=== PATIENT | male | born 1950 | race Caucasian/White ===

== ENCOUNTER 2019-12-03 21:03 | Inpatient (IN) | payer MEDICARE ==
[~2019-12-03] VITALS: Ht 167.6 cm; Wt 60.3 kg
--- NOTE | 2019-12-03 10:40 | NUR ---
GPS: ADMIT PT TO U Addendum: 12/04/19 at 0044 by EAGLE HAN RN PT ADMIT [id number] NOT [id number]
--- NOTE | 2019-12-03 21:08 | NUR ---
Dr. Delgado at bedside for MSE.
[2019-12-03] MEDS ORDERED: [UNRECOGNIZED DRUG - REMARK] (21:10)
[2019-12-03] MEDS ORDERED: [UNRECOGNIZED DRUG - REMARK] (21:10)
[2019-12-03 21:40] LABS: BASOPHILS # (AUTO) 0.1 K/uL (0.0-8.0); BASOPHILS % (AUTO) 0.7 % (0.0-2.0); EOSINOPHILS # (AUTO) 0.3 K/uL (0.0-0.7); EOSINOPHILS % (AUTO) 3.3 % (0.0-7.0); HEMATOCRIT 43.7 % (36.7-47.1); HEMOGLOBIN 14.5 g/dL (12.5-16.3); LYMPHOCYTES # (AUTO) 2.9 K/uL (20.0-40.0); LYMPHOCYTES % (AUTO) 37.2 % (20.5-51.5); MEAN CORPUSCULAR HEMOGLOBIN 29.6 uug (23.8-33.4); MEAN CORPUSCULAR HGB CONC 33 g/dL (32.5-36.3); MONOCYTES # (AUTO) 0.7 K/uL (2.0-10.0); MONOCYTES % (AUTO) 8.4 % (0.0-11.0); NEUTROPHILS # (AUTO) 3.9 K/uL (1.8-8.9); NEUTROPHILS % (AUTO) 50.4 % (38.5-71.5); PLATELET COUNT (AUTO) 308 K/uL (152-348); RED BLOOD CELL COUNT(AUTO) 4.91 MIL/uL (4.06-5.63); WHITE BLOOD COUNT (AUTO) 7.8 K/uL (3.6-10.2)
[2019-12-03 21:43] LABS: CARBON DIOXIDE 26 mmol/L (21-32); CHLORIDE 104 mmol/L (98-107); CREATININE 1.2 mg/dL (0.6-1.3); GLUCOSE 151 mg/dL (74-106); POTASSIUM 5.1 mmol/L (3.5-5.1); UREA NITROGEN, BLOOD 19 mg/dL (7-18)
[2019-12-03 21:49] LABS: ACETAMINOPHEN < 2.0 ug/mL (10-30); ALANINE AMINOTRANSFERASE 12 U/L (16-63); ALKALINE PHOSPHATASE 39 U/L (50-136); ASPARTATE AMINOTRANSFERASE 18 U/L (15-37); BILIRUBIN,DIRECT 0.4 mg/dL (0.0-0.2); BILIRUBIN,TOTAL 1.1 mg/dL (0.2-1.0); TOTAL PROTEIN, SERUM 7.5 g/dL (6.4-8.2)
[2019-12-03 21:56] LABS: THYROID STIMULATING HORMONE 0.766 mIU/mL (0.358-3.740)
[2019-12-03 22:11] LABS: ETHANOL < 3 MG/DL (0-0)
--- NOTE | 2019-12-03 22:15 | NUR ---
Patient medically cleared by Dr. Delgado
[2019-12-03] MEDS ORDERED: LORAZEPAM 0.5 MG TABLET PO ONE (22:30)
--- NOTE | 2019-12-03 22:30 | NUR ---
Report given to Will RN MHU.
[2019-12-03] MEDS ORDERED: LORAZEPAM 1 MG TABLET ONE (22:35)
[2019-12-03] MEDS ORDERED: BLOOD SUGAR DIAGNOSTIC 1 EACH STRIP VI ONE (23:15)
[2019-12-03] MEDS ORDERED: LORAZEPAM 0.5 MG TABLET PO PRN (23:15)
[2019-12-04] MEDS ORDERED: MAGNESIUM HYDROXIDE 30 ML LIQUID UDC PO PRN
[2019-12-04] MEDS ORDERED: MAG HYDROX/AL HYDROX/SIMETH 30 ML LIQUID UDC PO PRN
[2019-12-04] MEDS ORDERED: ACETAMINOPHEN 325 MG TABLET PO PRN
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
--- NOTE | 2019-12-04 00:38 | NUR ---
GPS: ADMIT PT TO THE CARE OF DR. ESPANA. CALLED AND MADE AWARE OF PT ARRIVAL AT 1125.
--- NOTE | 2019-12-04 05:00 | NUR ---
Patient slept throughout night with no complaints of pain/discomfort verbalized or noted/observed by this nurse. Patient was compliant with care after this nurse received handoff from LIZZETTE Penaloza. All safety, fall, and GPS/MHU precautions remain in place.
[2019-12-04 07:30] VITALS: BP 113/56
[2019-12-04 08:28] LABS: BILIRUBIN,TOTAL 1.1 mg/dL (0.2-1.0); POTASSIUM 5.1 mmol/L (3.5-5.1); TOTAL PROTEIN, SERUM 7.9 g/dL (6.4-8.2)
[2019-12-04] MEDS ORDERED: LISI2.5T2 PO (08:36)
[2019-12-04] MEDS ORDERED: MEMA10TA PO (08:38)
[2019-12-04 08:39] LABS: THYROID STIMULATING HORMONE 0.623 mIU/mL (0.358-3.740)
[2019-12-04] MEDS ORDERED: LEVO75TA7 PO (08:39)
[2019-12-04] MEDS: LISINOPRIL 5 MG TABLET PO SCH (09:00)
[2019-12-04] MEDS ORDERED: MEMANTINE HCL 10 MG TABLET PO SCH (09:00)
[2019-12-04] MEDS: MEMANTINE HCL 5 MG TABLET PO SCH ×2 (09:08→09:15)
[2019-12-04] MEDS: LEVOTHYROXINE SODIUM 75 MCG TABLET PO SCH (09:15)
--- NOTE | 2019-12-04 15:00 | NUR ---
Received patient this am, awake and alert in bed. Patient has been asking repeatly " Why am I here? When can I get out of here?" Hog Buyer reoriented patient to situation and explained the hold. Patient has some delusions about the situation that brought him to the hospital. However , patient is pleasant and medication compliant so far. This patient is able to have meaningful conversations, mostly about the past and his family. Continuing to monitor patient for behavioral escalation and safety. Encouragement and education given to the patient about all new medications started.
[2019-12-04 16:00] VITALS: BP 114/59
[2019-12-04] MEDS: DIVALPROEX SPRINKLE 125 MG CAP.SPRINK PO SCH (16:56)
[2019-12-04 20:00] VITALS: BP 99/51
[2019-12-04] MEDS: TEMAZEPAM 7.5 MG CAPSULE PO PRN (20:14)
[2019-12-05 07:30] VITALS: BP 111/63
[2019-12-05] MEDS: DIVALPROEX SPRINKLE 125 MG CAP.SPRINK PO SCH ×2 (08:17→16:50)
[2019-12-05] MEDS: LEVOTHYROXINE SODIUM 75 MCG TABLET PO SCH (08:17)
[2019-12-05] MEDS: MEMANTINE HCL 5 MG TABLET PO SCH (08:18)
[2019-12-05] MEDS: LISINOPRIL 5 MG TABLET PO SCH (08:19)
[2019-12-05 16:13] VITALS: BP 94/55
[2019-12-05] MEDS: BENZTROPINE MESYLATE 0.5 MG TABLET PO SCH (20:05)
[2019-12-05 20:24] VITALS: BP 97/50
[2019-12-05] MEDS ORDERED: risperiDONE 0.5 MG TABLET PO SCH (21:00)
[2019-12-06 07:30] VITALS: BP 102/54
--- NOTE | 2019-12-06 08:00 | NUR ---
patient AOx1, confused , calm coperative, compliant with medication
[2019-12-06] MEDS: LISINOPRIL 5 MG TABLET PO SCH (08:11)
[2019-12-06] MEDS: DIVALPROEX SPRINKLE 125 MG CAP.SPRINK PO SCH ×2 (08:11→16:01)
[2019-12-06] MEDS: MEMANTINE HCL 5 MG TABLET PO SCH (08:11)
[2019-12-06] MEDS: LEVOTHYROXINE SODIUM 75 MCG TABLET PO SCH (08:11)
--- NOTE | 2019-12-06 10:30 | NUR ---
Family Contact: SW called the pts son, Anthony ([phone]), and discussed the pts situation at length. Pts son informed the SW about the condition of the pt and the quick deterioration that occurred. Pts son also expressed his concern with the pts landlord and the SW stated that she will speak to him and work out a solution. SW inquired about the pts discharge plan and the pts son stated that he would like to see how the pt progresses in the next couple of days and will proceed with a plan for the pt to either return to his apartment or seek alternative placement.
--- NOTE | 2019-12-06 12:37 | NUR ---
patient seen with wet pants, patient denies that he pee on himself, no recollection on how his pants got wet, patient agreed on changing, patient calm and cooperative
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
--- NOTE | 2019-12-06 14:20 | NUR ---
Group Note: SW facilitated group therapy on 12/06/2019 at 1330. The topic of the group was grief and loss. Pt stated that he lost his parents a long time ago and that he felt the loss then but now he has replaced it with his own family and his siblings. Pt states that he had a but she left him which was a loss for him but he stated that it was a good loss. Pt stated that not all loss is negative and he stated that grief is also temporary. SW stated that the pt had good insight.
--- NOTE | 2019-12-06 15:11 | NUR ---
Family Contact: SW called the pts son, Anthony ([phone]), and left a voicemail stating that the SW was calling to discuss how interaction with the pt went during the assessment.
[2019-12-06 16:00] VITALS: BP 121/59
--- NOTE | 2019-12-06 16:08 | NUR ---
Initial Discharge Plan: Pt currently resides in his apartment alone located at [address] [place] [address], [address] [place] [address]; ([phone]). Per pt, he would like to return to his home. SW will work with the pt and the MD regarding appropriate discharge planning. SW will form a safe and proper discharge.
--- NOTE | 2019-12-06 18:15 | NUR ---
patient calm cooperative, no distress at this time, redirectable
--- NOTE | 2019-12-06 19:45 | NUR ---
received patient in bed alert oriented, ambulate to the toilet, no complain of pain. Patient calm at this time. cont to monitor.
[2019-12-06 20:00] VITALS: BP 125/60
[2019-12-06] MEDS ORDERED: risperiDONE 0.5 MG TABLET PO SCH (21:00)
[2019-12-06] MEDS: BENZTROPINE MESYLATE 0.5 MG TABLET PO SCH (21:31)
[2019-12-06] MEDS: TEMAZEPAM 7.5 MG CAPSULE PO PRN (21:40)
--- NOTE | 2019-12-06 22:40 | NUR ---
patient complain of insomnia, requested sleeping pill. patient was medicated as ordered, but not effective, request medication to help his anxiety, will medicate as ordered.
--- NOTE | 2019-12-06 23:34 | NUR ---
patient is up in the hallways, complaining of anxiety, medicated patient as ordered.
--- NOTE | 2019-12-07 06:37 | NUR ---
patient alert oriented, cooperative with care, slept most of the night, cont to monitor.
[2019-12-07 07:30] VITALS: BP 100/49
[2019-12-07] MEDS: LEVOTHYROXINE SODIUM 75 MCG TABLET PO SCH (08:06)
[2019-12-07] MEDS: DIVALPROEX SPRINKLE 125 MG CAP.SPRINK PO SCH ×2 (08:07→16:46)
[2019-12-07] MEDS: MEMANTINE HCL 5 MG TABLET PO SCH (08:07)
[2019-12-07] MEDS: LISINOPRIL 5 MG TABLET PO SCH (08:08)
--- NOTE | 2019-12-07 11:17 | NUR ---
Family Contact: BEV called the pts son, Anthony ([phone]), and discussed Assisted Living placement with him. BEV informed him that the MD recommendation is for the pt to be placed in a higher level of care since he currently lives by himself. Pts son stated that he began to look into some around a better area for the pts siblings and also stated that the pt does not make too much money. Pts son stated that he wants to speak to the rest of the family members before proceeding with this discharge plan. He also stated that they are looking into a different apartment for the pt and are interested in hiring a caregiver. BEV stated that she will proceed once he calls her back.
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
[2019-12-07 15:12] VITALS: BP 114/63
--- NOTE | 2019-12-07 16:14 | NUR ---
Family Contact: Pts son, Anthony ([phone]), called the SW back and stated that he spoke to the family and they agreed that the pt needs to be in an Assisted Living. He stated that the pts sister has a recommendation that he is going to call before having the SW follow up. SW assisted the pts son with what information to look for when speaking to this Assisted Living. SW then went over the pts medications with him to the best of her ability and transferred the call to the nursing station when the pts son was concerned about the lack of diabetes medication.
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
[2019-12-07] MEDS: BENZTROPINE MESYLATE 0.5 MG TABLET PO SCH (20:43)
[2019-12-07] MEDS ORDERED: risperiDONE 0.5 MG TABLET PO SCH (21:00)
[2019-12-07 21:18] VITALS: BP 124/55
--- NOTE | 2019-12-07 22:33 | NUR ---
Received pt resting in bed. AAO x3. No acute distress noted. Denies pain/ discomfort. Denies SI/ HI. Pt appears to be pleasant and conversational. Due meds given as ordered, pt tolerated well. Safety measures maintained. Will continue to monitor.
[2019-12-08 07:30] VITALS: BP 143/66
[2019-12-08] MEDS: DIVALPROEX SPRINKLE 125 MG CAP.SPRINK PO SCH ×2 (08:24→17:21)
[2019-12-08] MEDS: LEVOTHYROXINE SODIUM 75 MCG TABLET PO SCH (08:24)
[2019-12-08] MEDS: LISINOPRIL 5 MG TABLET PO SCH (08:25)
[2019-12-08] MEDS: MEMANTINE HCL 5 MG TABLET PO SCH (08:25)
--- NOTE | 2019-12-08 09:43 | NUR ---
Facility Contact: BEV called Angella ([phone]) from the [facility] and left a voicemail stating that the SW would like to discuss the pts placement.
--- NOTE | 2019-12-08 09:58 | NUR ---
Family Contact: SW called the pts son, Anthony ([phone]), and left a voicemail stating that the SW would like to discuss SNF placement with the pts son.
[2019-12-08] MEDS ORDERED: DEXTROSE 50% 50 ML DISP.SYRIN IV PRN (12:30)
--- NOTE | 2019-12-08 12:32 | NUR ---
left message to the office of dr mckeon at [phone] to get the information for patient current meds
--- NOTE | 2019-12-08 13:18 | NUR ---
Facility Contact: BEV called Angella ([phone]) from the [facility] and provided her with information regarding the pt through the phone. She requested that the BEV fax some documents to her with information on the pt. BEV faxed some notes to the fax number: [phone].
--- NOTE | 2019-12-08 13:18 | NUR ---
SNF Referral: SW faxed a referral to the following two facilities: [facility] with attn to Cristian to the fax number: [phone] [facility] with attn to Mary to the fax number: [phone].
--- NOTE | 2019-12-08 14:40 | NUR ---
APS Contact: BEV received a call from Isrrael ([phone]), Intake SW for APS, who stated that the case is being assigned to the [place] [facility] and the intake ID number is [id number].
--- NOTE | 2019-12-08 15:55 | NUR ---
Family Contact: BEV called the pts son, Anthony ([phone]), to return his voicemail message and stated that she has not received any more information from Angella at the [facility] after a referral was sent.
[2019-12-08 16:00] VITALS: BP 107/49
[2019-12-08] MEDS: BLOOD SUGAR DIAGNOSTIC 1 EACH STRIP VI SCH ×2 (16:50→21:02)
[2019-12-08] MEDS: INSULIN REGULAR, HUMAN 300 UNIT/3 ML VIAL SQ PRN ×2 (16:54→21:05)
[2019-12-08] MEDS ORDERED: FERR325T28 PO (17:46)
[2019-12-08] MEDS ORDERED: DONE10TA44 PO (17:46)
[2019-12-08] MEDS ORDERED: CYAN100096 PO (17:46)
[2019-12-08] MEDS ORDERED: ATOR80TA PO (17:46)
[2019-12-08] MEDS ORDERED: GABA600T12 PO (17:46)
[2019-12-08] MEDS ORDERED: CLOP75TA15 PO (17:46)
[2019-12-08] MEDS ORDERED: GLIP10TA11 PO (17:47)
[2019-12-08] MEDS ORDERED: METF-494 PO (17:49)
[2019-12-08] MEDS ORDERED: LISI2.5T2 PO (17:49)
[2019-12-08] MEDS ORDERED: SITA1TAB6 PO (17:51)
[2019-12-08] MEDS ORDERED: METO50TA16 PO (17:51)
--- NOTE | 2019-12-08 17:52 | NUR ---
patient son called multiple times to the nursing station to get his medication list form the primary physician, name zak. medication list recieved and added to patient home medications. endorsed to next shift to follow up with hospitalist tomorrow.
[2019-12-08] MEDS ORDERED: CANA100T PO (18:08)
[2019-12-08] MEDS ORDERED: CLOT15CR27 TP (18:08)
[2019-12-08] MEDS ORDERED: PARO10TA86 PO (18:08)
[2019-12-08] MEDS ORDERED: ECON15CR4 TP (18:08)
[2019-12-08] MEDS ORDERED: AZIT250T PO (18:08)
--- NOTE | 2019-12-08 18:38 | NUR ---
patient is ambulatory, no distress noted, no agitation noted Addendum: 12/08/19 at 1838 by JACINTO NEWMAN RN, RN denied suicidal thoughts
--- NOTE | 2019-12-08 19:28 | NUR ---
report given to night nurse
[2019-12-08] MEDS: BENZTROPINE MESYLATE 0.5 MG TABLET PO SCH (20:14)
[2019-12-08] MEDS: risperiDONE 0.5 MG TABLET PO SCH (20:14)
[2019-12-08 20:19] VITALS: BP 100/57
--- NOTE | 2019-12-09 06:18 | NUR ---
Pt slept 6.30 hrs. Had shower in am. BS 171.
[2019-12-09] MEDS: BLOOD SUGAR DIAGNOSTIC 1 EACH STRIP VI SCH ×4 (06:37→21:00)
[2019-12-09 07:30] VITALS: BP 108/57
[2019-12-09] MEDS: INSULIN REGULAR, HUMAN 300 UNIT/3 ML VIAL SQ PRN ×4 (08:19→21:05)
[2019-12-09] MEDS: MEMANTINE HCL 5 MG TABLET PO SCH (08:20)
[2019-12-09] MEDS: LEVOTHYROXINE SODIUM 75 MCG TABLET PO SCH (08:20)
[2019-12-09] MEDS: DIVALPROEX SPRINKLE 125 MG CAP.SPRINK PO SCH ×2 (08:20→17:15)
[2019-12-09] MEDS: LISINOPRIL 5 MG TABLET PO SCH (09:00)
--- NOTE | 2019-12-09 10:16 | NUR ---
SNF Contact: Anjana ([phone]) from [facility] contacted the SW and stated that the pt was not accepted due to behavior.
--- NOTE | 2019-12-09 12:25 | NUR ---
SNF Referral: BEV faxed a referral to [facility] with attention to Marisela to the fax number: [phone].
[2019-12-09 15:23] VITALS: BP 115/58
[2019-12-09] MEDS: risperiDONE 0.5 MG TABLET PO SCH (20:46)
[2019-12-09] MEDS: BENZTROPINE MESYLATE 0.5 MG TABLET PO SCH (20:46)
[2019-12-09 20:49] VITALS: BP 107/72
[2019-12-09] MEDS: TEMAZEPAM 7.5 MG CAPSULE PO PRN (21:03)
[2019-12-10] MEDS: BLOOD SUGAR DIAGNOSTIC 1 EACH STRIP VI SCH ×4 (06:41→20:14)
[2019-12-10 07:13] LABS: BASOPHILS % (AUTO) 0.6 % (0.0-2.0); EOSINOPHILS # (AUTO) 0.3 K/uL (0.0-0.7); EOSINOPHILS % (AUTO) 4.8 % (0.0-7.0); HEMATOCRIT 38.1 % (36.7-47.1); HEMOGLOBIN 12.9 g/dL (12.5-16.3); LYMPHOCYTES # (AUTO) 1.7 K/uL (20.0-40.0); LYMPHOCYTES % (AUTO) 31.9 % (20.5-51.5); MEAN CORPUSCULAR HGB CONC 34 g/dL (32.5-36.3); MEAN CORPUSCULAR VOLUME 88.8 fL (73.0-96.2); MONOCYTES # (AUTO) 0.4 K/uL (2.0-10.0); MONOCYTES % (AUTO) 7.3 % (0.0-11.0); NEUTROPHILS % (AUTO) 55.4 % (38.5-71.5); PLATELET COUNT (AUTO) 220 K/uL (152-348); RED BLOOD CELL COUNT(AUTO) 4.29 MIL/uL (4.06-5.63); WHITE BLOOD COUNT (AUTO) 5.4 K/uL (3.6-10.2)
[2019-12-10 07:30] VITALS: BP 110/64
[2019-12-10 07:44] LABS: BILIRUBIN,TOTAL 0.4 mg/dL (0.2-1.0); CREATININE 0.9 mg/dL (0.6-1.3); POTASSIUM 4.4 mmol/L (3.5-5.1); TOTAL PROTEIN, SERUM 6.6 g/dL (6.4-8.2)
[2019-12-10] MEDS: risperiDONE 0.5 MG TABLET PO SCH ×2 (08:19→21:53)
[2019-12-10] MEDS: LEVOTHYROXINE SODIUM 75 MCG TABLET PO SCH (08:19)
[2019-12-10] MEDS: DIVALPROEX SPRINKLE 125 MG CAP.SPRINK PO SCH ×3 (08:19→16:48)
[2019-12-10] MEDS: MEMANTINE HCL 5 MG TABLET PO SCH ×2 (08:20→21:53)
[2019-12-10] MEDS: LISINOPRIL 5 MG TABLET PO SCH (08:20)
[2019-12-10] MEDS: INSULIN REGULAR, HUMAN 300 UNIT/3 ML VIAL SQ PRN ×4 (08:26→20:34)
--- NOTE | 2019-12-10 11:44 | NUR ---
Family Contact: SW called the pts son, Anthony ([phone]), and spoke to him regarding the pts case. SW stated that the pt keeps stating that the pt wants to be discharged back to his home. SW stated that because the pt is alert and oriented, he has the right to make the decision. Pts son stated that he is in the process of getting DPOA and SW explained how this would have been executed if he did have DPOA. Pts son stated that he wants to talk to the pt about his rent and that later in the day he wants to have a conference call with the facility that the pt was referred to.
--- NOTE | 2019-12-10 12:25 | NUR ---
Probable Cause (PC) Hearing: SW called the pts son, Anthony ([phone]), and left him a voicemail stating that the pt will be having a hearing today and went on to explain the possible outcomes
--- NOTE | 2019-12-10 12:34 | NUR ---
Family Contact: SW called the pts son, Anthony ([phone]), and informed him that the pts hearing was upheld.
--- NOTE | 2019-12-10 12:34 | NUR ---
Probable Cause Hearing: Pts hearing was upheld on the grounds of danger to others.
[2019-12-10 15:25] VITALS: BP 131/56
--- NOTE | 2019-12-10 15:56 | NUR ---
Facility Contact: BEV called Angella ([phone]) from the [facility] and left a voicemail stating that she would like to follow up on the referral.
--- NOTE | 2019-12-10 15:56 | NUR ---
Family Contact: SW called the pts son, Anthony ([phone]), and informed him that the SW was not able to make contact with the [facility] and so the SW will follow up on Friday.
[2019-12-10 20:00] VITALS: BP 116/73
[2019-12-10] MEDS: BENZTROPINE MESYLATE 0.5 MG TABLET PO SCH (21:53)
[2019-12-10] MEDS: TEMAZEPAM 7.5 MG CAPSULE PO PRN (22:18)
[2019-12-11] MEDS: BLOOD SUGAR DIAGNOSTIC 1 EACH STRIP VI SCH ×4 (06:33→20:42)
[2019-12-11 07:30] VITALS: BP 123/65
[2019-12-11] MEDS: DIVALPROEX SPRINKLE 125 MG CAP.SPRINK PO SCH ×3 (08:26→16:43)
[2019-12-11] MEDS: MEMANTINE HCL 5 MG TABLET PO SCH ×2 (08:26→20:42)
[2019-12-11] MEDS: LEVOTHYROXINE SODIUM 75 MCG TABLET PO SCH (08:26)
[2019-12-11] MEDS: LISINOPRIL 5 MG TABLET PO SCH (08:27)
[2019-12-11] MEDS: INSULIN REGULAR, HUMAN 300 UNIT/3 ML VIAL SQ PRN ×4 (08:34→20:46)
[2019-12-11] MEDS: risperiDONE 0.5 MG TABLET PO SCH ×2 (09:16→20:43)
[2019-12-11 16:53] VITALS: BP 121/75
[2019-12-11] MEDS: BENZTROPINE MESYLATE 0.5 MG TABLET PO SCH (20:42)
[2019-12-11 20:59] VITALS: BP 94/50
[2019-12-11] MEDS: TEMAZEPAM 7.5 MG CAPSULE PO PRN (22:05)
[2019-12-12] MEDS: BLOOD SUGAR DIAGNOSTIC 1 EACH STRIP VI SCH ×4 (06:35→20:44)
[2019-12-12 07:30] VITALS: BP 125/64
[2019-12-12] MEDS: INSULIN REGULAR, HUMAN 300 UNIT/3 ML VIAL SQ PRN ×3 (08:00→17:13)
[2019-12-12] MEDS: MEMANTINE HCL 5 MG TABLET PO SCH ×2 (08:16→20:45)
[2019-12-12] MEDS: DIVALPROEX SPRINKLE 125 MG CAP.SPRINK PO SCH ×3 (08:16→17:08)
[2019-12-12] MEDS: LISINOPRIL 5 MG TABLET PO SCH (08:17)
[2019-12-12] MEDS: LEVOTHYROXINE SODIUM 75 MCG TABLET PO SCH (08:17)
[2019-12-12] MEDS: risperiDONE 0.5 MG TABLET PO SCH ×2 (08:19→20:45)
[2019-12-12 15:19] VITALS: BP 104/59
[2019-12-12] MEDS ORDERED: DEXTROSE 50% 50 ML DISP.SYRIN IV PRN (15:45)
[2019-12-12 20:03] VITALS: BP 120/59
[2019-12-12] MEDS: BENZTROPINE MESYLATE 0.5 MG TABLET PO SCH (20:45)
[2019-12-12] MEDS: INSULIN REGULAR, HUMAN 300 UNITS/3 ML VIAL SQ PRN (20:46)
--- NOTE | 2019-12-12 21:23 | NUR ---
Received patient in bed, AAO x3. Calm and cooperative. No SI. No behavioral issues.Compliant with medications. Able to make needs known. Accucheck done, BS: 254 covered by 6 units insulin based on insulin sliding scale. Safety measures maintained. Continue to monitor.
[2019-12-13] MEDS: BLOOD SUGAR DIAGNOSTIC 1 EACH STRIP VI SCH ×4 (06:30→21:28)
[2019-12-13] MEDS: LEVOTHYROXINE SODIUM 75 MCG TABLET PO SCH (06:30)
[2019-12-13 07:30] VITALS: BP 134/80
[2019-12-13] MEDS: DIVALPROEX SPRINKLE 125 MG CAP.SPRINK PO SCH ×2 (08:22→12:51)
[2019-12-13] MEDS: MEMANTINE HCL 5 MG TABLET PO SCH ×2 (08:22→21:28)
[2019-12-13] MEDS: LISINOPRIL 5 MG TABLET PO SCH (08:23)
[2019-12-13] MEDS: risperiDONE 0.5 MG TABLET PO SCH ×3 (08:50→21:28)
[2019-12-13] MEDS: INSULIN REGULAR, HUMAN 300 UNIT/3 ML VIAL SQ PRN ×3 (08:53→16:25)
--- NOTE | 2019-12-13 11:06 | NUR ---
Received patient awake in bed in stable condition. AOx3. Patient compliance with medication. tolerated well. Patient observe walking in the hallway quietly. Patient communicates with roommate without difficulty. no agitation noted. not in distress. Denies suicidal and homicidal ideation. will continue monitor for safety.
--- NOTE | 2019-12-13 11:50 | NUR ---
Partial Referral: BEV faxed a referral to [facility] Partial Program with attention to Nadia to the fax number: [phone].
--- NOTE | 2019-12-13 12:09 | NUR ---
Facility Contact: BEV called Angella ([phone]) from the [facility] and inquired about the pts referral and she stated that her home health administrator denied the pt admission.
--- NOTE | 2019-12-13 12:16 | NUR ---
Family Contact: BEV called the pts son, Anthony ([phone]), and left a voicemail stating that the pt got denied from the [facility] and that the pt will be discharged back to his home the following day.
[2019-12-13] MEDS: BENZTROPINE MESYLATE 0.5 MG TABLET PO SCH ×2 (12:51→16:26)
[2019-12-13 15:11] VITALS: BP 106/64
--- NOTE | 2019-12-13 16:13 | NUR ---
Family Contact: Pts son, Anthony ([phone]), called the SW and stated that he does not want the pt to be discharged the following day because the pt is not in the right mindset to go home when he thinks that he can live there rent free. Pts son states that he is just going to create more problems and the SW explained that the pt has the right to decide his discharge as he is not too impaired and there is no DPOA.
--- NOTE | 2019-12-13 16:25 | NUR ---
Partial Program: BEV called Lizz ([phone]) from [email or web address] and she stated that Nadia will call the BEV the following day to set up an intake appointment.
[2019-12-13] MEDS: DIVALPROEX 500 MG TABLET.DR PO SCH (16:26)
[2019-12-13 20:26] VITALS: BP 104/60
[2019-12-13] MEDS: INSULIN REGULAR, HUMAN 300 UNITS/3 ML VIAL SQ PRN (21:31)
--- NOTE | 2019-12-14 04:17 | NUR ---
Received patient in bed, AAO x3. Calm and cooperative. No SI. No behavioral issues.Compliant with medications. Able to make needs known. Accucheck done, BS: 251 covered by 6 units insulin based on insulin sliding scale. Safety measures maintained. Continue to monitor.
[2019-12-14] MEDS: LEVOTHYROXINE SODIUM 75 MCG TABLET PO SCH (06:30)
[2019-12-14] MEDS: BLOOD SUGAR DIAGNOSTIC 1 EACH STRIP VI SCH ×4 (06:30→20:52)
[2019-12-14 07:24] LABS: BASOPHILS % (AUTO) 0.6 % (0.0-2.0); EOSINOPHILS # (AUTO) 0.3 K/uL (0.0-0.7); HEMATOCRIT 34.9 % (36.7-47.1); HEMOGLOBIN 11.8 g/dL (12.5-16.3); LYMPHOCYTES # (AUTO) 1.8 K/uL (20.0-40.0); LYMPHOCYTES % (AUTO) 34.7 % (20.5-51.5); MEAN CORPUSCULAR HEMOGLOBIN 30.1 uug (23.8-33.4); MEAN CORPUSCULAR HGB CONC 34 g/dL (32.5-36.3); MEAN CORPUSCULAR VOLUME 89.1 fL (73.0-96.2); MONOCYTES # (AUTO) 0.5 K/uL (2.0-10.0); MONOCYTES % (AUTO) 9.4 % (0.0-11.0); NEUTROPHILS # (AUTO) 2.7 K/uL (1.8-8.9); NEUTROPHILS % (AUTO) 50.3 % (38.5-71.5); PLATELET COUNT (AUTO) 220 K/uL (152-348); RED BLOOD CELL COUNT(AUTO) 3.92 MIL/uL (4.06-5.63); WHITE BLOOD COUNT (AUTO) 5.3 K/uL (3.6-10.2)
[2019-12-14 07:30] VITALS: BP 125/64
[2019-12-14 07:51] LABS: BILIRUBIN,TOTAL 0.5 mg/dL (0.2-1.0); CREATININE 0.9 mg/dL (0.6-1.3); POTASSIUM 4.3 mmol/L (3.5-5.1)
--- NOTE | 2019-12-14 08:00 | NUR ---
received patient AOx2-3, patient in good mood, patient denies Si and HI, no distress, compliant with medication
[2019-12-14] MEDS: risperiDONE 0.5 MG TABLET PO SCH ×3 (08:03→21:04)
[2019-12-14] MEDS: DIVALPROEX SPRINKLE 125 MG CAP.SPRINK PO SCH ×2 (08:03→12:06)
[2019-12-14] MEDS: BENZTROPINE MESYLATE 0.5 MG TABLET PO SCH ×2 (08:03→16:05)
[2019-12-14] MEDS: LISINOPRIL 5 MG TABLET PO SCH (08:06)
[2019-12-14] MEDS: INSULIN REGULAR, HUMAN 300 UNIT/3 ML VIAL SQ PRN ×3 (08:08→16:30)
[2019-12-14] MEDS: MEMANTINE HCL 5 MG TABLET PO SCH ×2 (08:10→21:04)
--- NOTE | 2019-12-14 12:10 | NUR ---
APS Contact: BEV called the [place] [facility] ([phone]) and was informed that the pts case was still pending.
--- NOTE | 2019-12-14 12:28 | NUR ---
Discharge Note: Pt was discharged to [facility] located at [address] [place] [address]; . Pt was discharged around 1600. Pts son, Anthony ([phone]), was made aware of the discharge. Upon discharge, the pt appeared to be in a euthymic mood and presented with a calm affect. Pt appeared to be alert and oriented x3. Pt is ambulatory with a steady gait. Pt appeared to be well groomed and appropriately dressed. Pt denied both suicidal and homicidal ideation as well as auditory and visual hallucinations. Pt will be under the care of his psychiatrist, Dr. Dorota Gong, located at [address] [facility] [address] [place] [address]; and will be under the care of his crew clerk, Dr. Ger Copeland, located at [address] [facility] [address], [place] [address]; . Pt signed the Choice of Vendor form. Addendum: 12/14/19 at 1631 by BRIANNE PABLO Pt refused to be discharged and appeared to be disorganized and delusional. Dr Gong was informed of the situation and the statements that the pt was making and she decided to cancel the discharge and make medication changes.
--- NOTE | 2019-12-14 13:25 | NUR ---
Emily and Family Contact: SW contacted the pts landlord, Kalyan ([phone]) and pts son, Anthony ([phone]), to discuss the pts discharge plan. Emily stated that the pts lease was over in October and that he is not going to renew the lease. At the same time, SW confirmed that the pt cannot be evicted at this time. Pts son stated that the pt would be considered "squatting" and that he will be evicted eventually. BEV stated that the pt agreed to be discharged to a SNF when the pt met with the MD and the SW earlier in the day. SW asked that the two individuals work together regarding the pts belongings and the SW will work on the pts discharge to the SNF.
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
--- NOTE | 2019-12-14 15:15 | NUR ---
Individual Intervention with the pt: Pt refused to be discharged to the SNF and stated that he was going to go back to his apartment which is paid for until the end of the year. SW attempted to orient the pt to reality but the pt became agitated and stated that he felt like no one is listening to him. BEV stated that he continuously repeats the same information daily that is not relevant to the discharge planning process but the pt refused to listen once again and began a tangent. SW informed the MD and the MD decided to postpone the discharge.
--- NOTE | 2019-12-14 15:26 | NUR ---
patient refused to be discharged, started to be agitated and shouting at the staff, patient strongly believes that he should be going home , explained that he agreed upon on DC to go to SNF , called and spoke with DR. Gong , DC orders was deferred
[2019-12-14] MEDS: DIVALPROEX 500 MG TABLET.DR PO SCH (16:04)
--- NOTE | 2019-12-14 16:31 | NUR ---
Family Contact: BEV called the pts son, Anthony ([phone]) and informed him that the pt was not discharged as he refused to be discharged to the SNF. Pt stated that the pt was making delusional statements so the MD decided to cancel the discharge and is planning to place him on a 30 day hold and make medication changes.
[2019-12-14] MEDS ORDERED: risperiDONE 0.5 MG TABLET PO SCH (17:00)
[2019-12-14] MEDS: ASPIRIN 81 MG TAB.CHEW PO SCH (17:25)
--- NOTE | 2019-12-14 18:14 | NUR ---
patient remain calm, but still verbalizes that he will not go to SNF
[2019-12-14 18:41] VITALS: BP 108/54
[2019-12-14 20:23] VITALS: BP 142/62
[2019-12-14] MEDS: ATORVASTATIN 40 MG TABLET PO SCH (21:04)
[2019-12-14] MEDS: INSULIN REGULAR, HUMAN 300 UNITS/3 ML VIAL SQ PRN (21:07)
--- NOTE | 2019-12-15 01:28 | NUR ---
GPS/ PT RECEIVED UP IN TV ROOM, A/OX4. NO VERBALIZED OF SI, OR INTENT OT HARM SELF OR OTHERS. PT AWARE OF SURROUNDING AND NOT C/O PAIN. NO AGITATION NOTED AND PT COOPERATIVE WITH ROUTINE MEDICATIONS. BLOOD SUGAR WITHIN PARAMETER AND DUE INSULIN GIVEN ORDERED. NO ABNORMAL NOTED, WILL CONTINUE TO MONITOR Q/15MINS HEAD CHECK ONGOING.
[2019-12-15] MEDS: LEVOTHYROXINE SODIUM 75 MCG TABLET PO SCH (06:39)
[2019-12-15] MEDS: BLOOD SUGAR DIAGNOSTIC 1 EACH STRIP VI SCH ×5 (06:40→20:48)
[2019-12-15 07:30] VITALS: BP 117/64
[2019-12-15] MEDS: INSULIN REGULAR, HUMAN 300 UNIT/3 ML VIAL SQ PRN ×2 (08:22→12:42)
[2019-12-15] MEDS: risperiDONE 0.5 MG TABLET PO SCH ×3 (08:45→20:48)
[2019-12-15] MEDS: ASPIRIN 81 MG TAB.CHEW PO SCH (08:45)
[2019-12-15] MEDS: MEMANTINE HCL 5 MG TABLET PO SCH ×2 (08:45→20:47)
[2019-12-15] MEDS: BENZTROPINE MESYLATE 0.5 MG TABLET PO SCH ×2 (08:45→18:09)
[2019-12-15] MEDS: DIVALPROEX SPRINKLE 125 MG CAP.SPRINK PO SCH (08:46)
[2019-12-15] MEDS: LISINOPRIL 5 MG TABLET PO SCH (08:47)
[2019-12-15] MEDS: GLUCERNA SHAKE VANILLA 237 ML CAN PO SCH (08:53)
--- NOTE | 2019-12-15 11:46 | NUR ---
SNF Contact: Ruy from [facility] contacted the SW and stated that the pt was accepted to their facility upon discharge.
[2019-12-15] MEDS ORDERED: DIVALPROEX 250 MG TABLET.DR PO SCH (13:00)
[2019-12-15 16:00] VITALS: BP 131/42
[2019-12-15] MEDS: DIVALPROEX 500 MG TABLET.DR PO SCH (18:08)
[2019-12-15 20:12] VITALS: BP 111/53
[2019-12-15] MEDS: ATORVASTATIN 40 MG TABLET PO SCH (20:47)
[2019-12-15] MEDS: INSULIN REGULAR, HUMAN 300 UNITS/3 ML VIAL SQ PRN (20:51)
[2019-12-16] MEDS: LEVOTHYROXINE SODIUM 75 MCG TABLET PO SCH (06:43)
[2019-12-16] MEDS: BLOOD SUGAR DIAGNOSTIC 1 EACH STRIP VI SCH ×4 (06:44→20:46)
[2019-12-16 07:30] VITALS: BP 118/67
[2019-12-16] MEDS: DIVALPROEX SPRINKLE 125 MG CAP.SPRINK PO SCH (08:42)
[2019-12-16] MEDS: MEMANTINE HCL 5 MG TABLET PO SCH ×2 (08:42→20:45)
[2019-12-16] MEDS: ASPIRIN 81 MG TAB.CHEW PO SCH (08:42)
[2019-12-16] MEDS: risperiDONE 0.5 MG TABLET PO SCH ×4 (08:42→20:45)
[2019-12-16] MEDS: BENZTROPINE MESYLATE 0.5 MG TABLET PO SCH ×2 (08:42→17:58)
[2019-12-16] MEDS: LISINOPRIL 5 MG TABLET PO SCH (08:45)
[2019-12-16] MEDS: INSULIN REGULAR, HUMAN 300 UNIT/3 ML VIAL SQ PRN ×2 (08:47→13:04)
[2019-12-16] MEDS: GLUCERNA SHAKE VANILLA 237 ML CAN PO SCH (10:54)
[2019-12-16] MEDS: DIVALPROEX 250 MG TABLET.DR PO SCH (12:43)
[2019-12-16 16:00] VITALS: BP 114/58
[2019-12-16] MEDS: DIVALPROEX 500 MG TABLET.DR PO SCH (17:58)
[2019-12-16 20:00] VITALS: BP 111/71
--- NOTE | 2019-12-16 20:05 | NUR ---
RECEIVED PATIENT SITTING IN BED CALM AND PLEASANT WHEN APPROACHED. PATIENT IS AWAKE ALERT AND ORIENTED X3. MOOD IS SLIGHTLY ANXIOUS. AFFECT IS APPROPRIATE. PATIENT WAS ABLE TO HAVE A MEANINGFUL CONVERSATION. PATIENT IS COMPLIANT WITH MEDICATION REGIMEN. SAFETY MEASURES IN PLACE AND WILL CONTINUE TO MONITOR.
[2019-12-16] MEDS: ATORVASTATIN 40 MG TABLET PO SCH (20:45)
[2019-12-16] MEDS: INSULIN REGULAR, HUMAN 300 UNITS/3 ML VIAL SQ PRN (20:48)
[2019-12-17] MEDS: BLOOD SUGAR DIAGNOSTIC 1 EACH STRIP VI SCH ×4 (07:00→20:32)
[2019-12-17] MEDS: LEVOTHYROXINE SODIUM 75 MCG TABLET PO SCH (07:00)
[2019-12-17 07:30] VITALS: BP 112/80
[2019-12-17] MEDS: DIVALPROEX SPRINKLE 125 MG CAP.SPRINK PO SCH (08:57)
[2019-12-17] MEDS: BENZTROPINE MESYLATE 0.5 MG TABLET PO SCH ×2 (08:57→17:58)
[2019-12-17] MEDS: MEMANTINE HCL 5 MG TABLET PO SCH ×2 (08:58→20:24)
[2019-12-17] MEDS: risperiDONE 0.5 MG TABLET PO SCH ×4 (08:58→20:24)
[2019-12-17] MEDS: ASPIRIN 81 MG TAB.CHEW PO SCH (08:59)
[2019-12-17] MEDS: LISINOPRIL 5 MG TABLET PO SCH (08:59)
[2019-12-17] MEDS: INSULIN REGULAR, HUMAN 300 UNIT/3 ML VIAL SQ PRN ×2 (09:37→12:32)
[2019-12-17] MEDS: GLUCERNA SHAKE VANILLA 237 ML CAN PO SCH (10:07)
--- NOTE | 2019-12-17 10:58 | NUR ---
Conservatorship Referral: BEV faxed the conservatorship paperwork to the [place] [facility] to the fax number: [phone].
[2019-12-17] MEDS: DIVALPROEX 250 MG TABLET.DR PO SCH (12:42)
--- NOTE | 2019-12-17 15:52 | NUR ---
APS Contact: SW called Satish ([phone]), from [facility], and informed her about the details regarding this case. She stated that she called and spoke to the Charge Nurse as well as the patient. She stated that the Charge Nurse identified the pt as alert but also disorganized and confused. Pt stated that he did not remember reporting to the SW any of the details that were mentioned in the APS report. SW stated that the pt has been neglecting his care, does accept help and has fixed delusions. SW stated that the pts reality is impaired and the pt believes that he can live in his apartment for free for the rest of the year and get 4 months of his security deposit back. SW informed her about placing the pt in a SNF and the pt refusing to go at the time of discharge. BEV stated that the pts son is involved and that the hospital has petitioned for the pt to be conserved. She stated that she would like to be notified at the time of the pts discharge.
[2019-12-17 16:00] VITALS: BP 125/64
[2019-12-17] MEDS: DIVALPROEX 500 MG TABLET.DR PO SCH (17:58)
[2019-12-17 20:00] VITALS: BP 103/57
[2019-12-17] MEDS: ATORVASTATIN 40 MG TABLET PO SCH (20:24)
[2019-12-17] MEDS: INSULIN REGULAR, HUMAN 300 UNITS/3 ML VIAL SQ PRN (20:35)
--- NOTE | 2019-12-18 04:48 | NUR ---
GPS/ RECEIVED IN HIS ROOM A/OX3. DENIED OF SI, OR INTENT OT HARM SELF OR OTHERS. PT AWARE OF SURROUNDING AND NO C/O PAIN. NO AGITATION NOTED AND PT COOPERATIVE WITH ROUTINE MEDICATIONS. NOTED PT A BIT FORGETFUL AND NOT REMEMBERING HIS ROOM NUMBER. REORIENTED PT BACK TO REALITY AND MONITOR. BLOOD SUGAR WITHIN PARAMETER DUE DUE INSULIN GIVEN ORDERED. NO NEW CHANGES NOTED, WILL CONTINUE TO MONITOR Q/15MINS HEAD CHECK ONGOING.
[2019-12-18] MEDS: LEVOTHYROXINE SODIUM 75 MCG TABLET PO SCH (06:40)
[2019-12-18] MEDS: BLOOD SUGAR DIAGNOSTIC 1 EACH STRIP VI SCH ×4 (06:40→21:16)
[2019-12-18 07:30] VITALS: BP 105/49
[2019-12-18] MEDS: GLUCERNA SHAKE VANILLA 237 ML CAN PO SCH (09:00)
[2019-12-18] MEDS: LISINOPRIL 5 MG TABLET PO SCH (09:00)
[2019-12-18] MEDS: ASPIRIN 81 MG TAB.CHEW PO SCH (09:04)
[2019-12-18] MEDS: DIVALPROEX SPRINKLE 125 MG CAP.SPRINK PO SCH (09:04)
[2019-12-18] MEDS: risperiDONE 0.5 MG TABLET PO SCH ×4 (09:05→21:18)
[2019-12-18] MEDS: BENZTROPINE MESYLATE 0.5 MG TABLET PO SCH ×2 (09:05→18:26)
[2019-12-18] MEDS: MEMANTINE HCL 5 MG TABLET PO SCH ×2 (09:05→21:20)
[2019-12-18] MEDS: INSULIN REGULAR, HUMAN 300 UNIT/3 ML VIAL SQ PRN (12:10)
[2019-12-18] MEDS: DIVALPROEX 250 MG TABLET.DR PO SCH (14:31)
[2019-12-18 16:39] VITALS: BP 121/64
[2019-12-18] MEDS: DIVALPROEX 500 MG TABLET.DR PO SCH (18:26)
[2019-12-18 19:54] VITALS: BP 118/61
[2019-12-18] MEDS: ATORVASTATIN 40 MG TABLET PO SCH (21:20)
[2019-12-18] MEDS: INSULIN REGULAR, HUMAN 300 UNITS/3 ML VIAL SQ PRN (21:20)
[2019-12-19] MEDS: LEVOTHYROXINE SODIUM 75 MCG TABLET PO SCH (06:30)
[2019-12-19] MEDS: BLOOD SUGAR DIAGNOSTIC 1 EACH STRIP VI SCH ×4 (06:43→20:23)
[2019-12-19 07:30] VITALS: BP 100/47
[2019-12-19] MEDS: MEMANTINE HCL 5 MG TABLET PO SCH ×2 (08:33→20:24)
[2019-12-19] MEDS: risperiDONE 0.5 MG TABLET PO SCH ×4 (08:33→20:23)
[2019-12-19] MEDS: BENZTROPINE MESYLATE 0.5 MG TABLET PO SCH ×2 (08:33→17:14)
[2019-12-19] MEDS: DIVALPROEX SPRINKLE 125 MG CAP.SPRINK PO SCH (08:33)
[2019-12-19] MEDS: ASPIRIN 81 MG TAB.CHEW PO SCH (08:33)
[2019-12-19] MEDS: GLUCERNA SHAKE VANILLA 237 ML CAN PO SCH (08:34)
[2019-12-19] MEDS: LISINOPRIL 5 MG TABLET PO SCH (08:34)
[2019-12-19] MEDS: INSULIN REGULAR, HUMAN 300 UNIT/3 ML VIAL SQ PRN ×3 (08:35→17:15)
[2019-12-19] MEDS: DIVALPROEX 250 MG TABLET.DR PO SCH (12:09)
[2019-12-19 16:00] VITALS: BP 125/63
--- NOTE | 2019-12-19 16:34 | NUR ---
Received patient this am in bed asleep. This patient is medication compliant, but has no incite. Still with delusion and denies having diabetes. Blood sugars are high and are being treated. Attempts made to educate patient on his medications and diabetes, but reinforcement needed. Continuing to reorient patient to the situation because he is very forgetful. Also noted patient is isolative and sleeps during the day a lot despite encouragement to get up and walk around, go outside and join group.
[2019-12-19] MEDS: DIVALPROEX 500 MG TABLET.DR PO SCH (17:14)
[2019-12-19] MEDS: ATORVASTATIN 40 MG TABLET PO SCH (20:24)
[2019-12-19] MEDS: INSULIN REGULAR, HUMAN 300 UNITS/3 ML VIAL SQ PRN (20:26)
--- NOTE | 2019-12-19 20:30 | NUR ---
RECEIVED PATIENT IN HIS ROOM SITTING IN HIS BED. HE IS NOTED A/O X 2. CALM AND PLEASANT UPON APPROACHED. HE IS NOTED FORGETFUL, DISORGANIZED AND DISORIENTED AT TIMES. AFFECT IS BRIGHT MOOD IS LABILE. PATIENT IS REDIRECTABLE. ABLE TO ACCEPT CARE, COMPLIANT WITH MEDICATION REGIMENT DIET AND PLAN OF CARE. V/S STABLE AT THIS TIME. PATIENT IN REASSURED FOR HIS SAFETY. SAFETY AND FALL PRECAUTION IN PLACE. WILL CONTINUE TO MONITOR.
[2019-12-19 20:42] VITALS: BP 118/68
[2019-12-20] MEDS: LEVOTHYROXINE SODIUM 75 MCG TABLET PO SCH (06:31)
[2019-12-20] MEDS: BLOOD SUGAR DIAGNOSTIC 1 EACH STRIP VI SCH ×4 (06:31→20:44)
[2019-12-20 07:30] VITALS: BP 133/64
[2019-12-20] MEDS: INSULIN REGULAR, HUMAN 300 UNIT/3 ML VIAL SQ PRN ×3 (08:35→16:13)
[2019-12-20] MEDS: BENZTROPINE MESYLATE 0.5 MG TABLET PO SCH ×2 (08:35→16:18)
[2019-12-20] MEDS: DIVALPROEX SPRINKLE 125 MG CAP.SPRINK PO SCH (08:35)
[2019-12-20] MEDS: ASPIRIN 81 MG TAB.CHEW PO SCH (08:35)
[2019-12-20] MEDS: MEMANTINE HCL 5 MG TABLET PO SCH ×2 (08:35→20:44)
[2019-12-20] MEDS: risperiDONE 0.5 MG TABLET PO SCH ×4 (08:35→20:44)
[2019-12-20] MEDS: LISINOPRIL 5 MG TABLET PO SCH (08:36)
[2019-12-20] MEDS: GLUCERNA SHAKE VANILLA 237 ML CAN PO SCH (08:42)
[2019-12-20] MEDS: DIVALPROEX 250 MG TABLET.DR PO SCH (12:16)
--- NOTE | 2019-12-20 13:09 | NUR ---
Received patient awake in bed. Patient continue compliant with medication. Patient no behavioral problem noted. Patient continue blood sugar monitoring with sliding scale. no signs of hypo/hyperglycemia. no complaint of pain/discomfort noted. will continue monitor
[2019-12-20 15:11] VITALS: BP 104/56
[2019-12-20] MEDS: DIVALPROEX 500 MG TABLET.DR PO SCH (16:18)
[2019-12-20 20:00] VITALS: BP 112/61
[2019-12-20] MEDS: ATORVASTATIN 40 MG TABLET PO SCH (20:44)
[2019-12-20] MEDS: INSULIN REGULAR, HUMAN 300 UNITS/3 ML VIAL SQ PRN (20:46)
[2019-12-21] MEDS: LEVOTHYROXINE SODIUM 75 MCG TABLET PO SCH (06:34)
[2019-12-21] MEDS: BLOOD SUGAR DIAGNOSTIC 1 EACH STRIP VI SCH ×4 (06:34→20:43)
[2019-12-21 07:07] LABS: BASOPHILS % (AUTO) 0.4 % (0.0-2.0); EOSINOPHILS # (AUTO) 0.2 K/uL (0.0-0.7); EOSINOPHILS % (AUTO) 4.1 % (0.0-7.0); HEMATOCRIT 36.4 % (36.7-47.1); HEMOGLOBIN 12.2 g/dL (12.5-16.3); LYMPHOCYTES # (AUTO) 1.7 K/uL (20.0-40.0); MEAN CORPUSCULAR HEMOGLOBIN 30.2 uug (23.8-33.4); MEAN CORPUSCULAR HGB CONC 34 g/dL (32.5-36.3); MEAN CORPUSCULAR VOLUME 90.2 fL (73.0-96.2); MONOCYTES # (AUTO) 0.6 K/uL (2.0-10.0); MONOCYTES % (AUTO) 10.8 % (0.0-11.0); NEUTROPHILS # (AUTO) 2.7 K/uL (1.8-8.9); NEUTROPHILS % (AUTO) 52.7 % (38.5-71.5); PLATELET COUNT (AUTO) 198 K/uL (152-348); RED BLOOD CELL COUNT(AUTO) 4.04 MIL/uL (4.06-5.63); WHITE BLOOD COUNT (AUTO) 5.2 K/uL (3.6-10.2)
[2019-12-21 07:19] LABS: BILIRUBIN,TOTAL 0.5 mg/dL (0.2-1.0); POTASSIUM 4.3 mmol/L (3.5-5.1); TOTAL PROTEIN, SERUM 6.4 g/dL (6.4-8.2)
[2019-12-21 07:30] VITALS: BP 128/57
[2019-12-21] MEDS: DIVALPROEX SPRINKLE 125 MG CAP.SPRINK PO SCH (08:20)
[2019-12-21] MEDS: risperiDONE 0.5 MG TABLET PO SCH ×4 (08:21→20:43)
[2019-12-21] MEDS: ASPIRIN 81 MG TAB.CHEW PO SCH (08:21)
[2019-12-21] MEDS: LISINOPRIL 5 MG TABLET PO SCH (08:21)
[2019-12-21] MEDS: BENZTROPINE MESYLATE 0.5 MG TABLET PO SCH ×2 (08:21→17:26)
[2019-12-21] MEDS: MEMANTINE HCL 5 MG TABLET PO SCH ×2 (08:24→20:43)
[2019-12-21] MEDS: GLUCERNA SHAKE VANILLA 237 ML CAN PO SCH (08:27)
[2019-12-21] MEDS: INSULIN REGULAR, HUMAN 300 UNIT/3 ML VIAL SQ PRN ×3 (08:34→17:28)
--- NOTE | 2019-12-21 11:21 | NUR ---
PROBATE CONSERVATORSHIP: SW received a voicemail from Cindy, at the [place] [facility] ([phone]) who stated that probate conservatorship application was sent to the incorrect department and stated she would forward the application to the appropriate department.
--- NOTE | 2019-12-21 11:23 | NUR ---
PROBATE CONSERVATORSHIP: BEV contacted Cindy at the [facility] ([phone]) and left a voicemail requesting appropriate department and contact information for probate conservatorship follow-up.
[2019-12-21] MEDS: DIVALPROEX 250 MG TABLET.DR PO SCH (12:38)
--- NOTE | 2019-12-21 13:13 | NUR ---
PROBATE CONSERVATORSHIP: SW received a call from Isabel Cox, electronic maintenance supervisor with Probate Conservatorship with [place] [facility] ([phone]) who stated that the petition for probate conservatorship has been rejected as they do not accept faxed petitions and also stated that the hospital cannot file a petition on behalf of pts son. Isabel stated that the son has to file a petition in person (if represented by an real estate associate attorney) or via mail and pay a fee. She stated that son can fill out the appropriate paperwork on the [place] website or call Isabel for further instructions and/or questions.
--- NOTE | 2019-12-21 13:19 | NUR ---
FAMILY CONTACT: BEV called the pts son, Anthony ([phone]) and provided him with an update on probate conservatorship. SW provided him with instructions on how to file a petition and also provided him with fountain supervisor at [employer]'s phone number. Son stated he will follow up and file a petition. Son states he lives in [place] and is unable to do it in person.
[2019-12-21 16:07] VITALS: BP 95/49
[2019-12-21] MEDS: DIVALPROEX 500 MG TABLET.DR PO SCH (17:26)
[2019-12-21 20:10] VITALS: BP 101/52
[2019-12-21] MEDS: ATORVASTATIN 40 MG TABLET PO SCH (20:42)
[2019-12-21] MEDS: INSULIN REGULAR, HUMAN 300 UNITS/3 ML VIAL SQ PRN (20:50)
[2019-12-22] MEDS: BLOOD SUGAR DIAGNOSTIC 1 EACH STRIP VI SCH ×4 (06:34→20:54)
[2019-12-22] MEDS: LEVOTHYROXINE SODIUM 75 MCG TABLET PO SCH ×2 (06:34→08:32)
[2019-12-22 07:30] VITALS: BP 132/60
[2019-12-22] MEDS: DIVALPROEX SPRINKLE 125 MG CAP.SPRINK PO SCH (08:32)
[2019-12-22] MEDS: risperiDONE 0.5 MG TABLET PO SCH ×4 (08:32→20:54)
[2019-12-22] MEDS: MEMANTINE HCL 5 MG TABLET PO SCH ×2 (08:33→20:50)
[2019-12-22] MEDS: BENZTROPINE MESYLATE 0.5 MG TABLET PO SCH ×2 (08:33→17:21)
[2019-12-22] MEDS: ASPIRIN 81 MG TAB.CHEW PO SCH (08:33)
[2019-12-22] MEDS: INSULIN REGULAR, HUMAN 300 UNIT/3 ML VIAL SQ PRN ×3 (08:39→17:54)
[2019-12-22] MEDS: LISINOPRIL 5 MG TABLET PO SCH (09:19)
[2019-12-22] MEDS: GLUCERNA SHAKE VANILLA 237 ML CAN PO SCH (09:25)
--- NOTE | 2019-12-22 10:00 | NUR ---
INDIVIDUAL INTERVENTION: SW spoke with pt at bedside to discuss pts discharge plan. Pt states he wishes to be discharged home and SW explained that pt cannot return home and will have to go to a SNF short term until his son Anthony is able to file for appropriate paperwork to make decisions on his behalf and also assisting with permanent placement. Pt stated he agrees to go to a SNF and states he trusts his sons judgement and will allow him to make decisions on his behalf.
--- NOTE | 2019-12-22 11:38 | NUR ---
SNF CONTACT: BEV contacted Ruy from [facility] to inform him pt may be discharged on this present day. Ruy requested rapid COVID test. BEV informed him that pt was already tested on 12/14/19. Ruy stated he will get back to BEV with an update on COVID test requirement for admission.
[2019-12-22] MEDS: DIVALPROEX 250 MG TABLET.DR PO SCH (12:32)
--- NOTE | 2019-12-22 13:02 | NUR ---
FAMILY CONTACT: BEV called the pts son, Anthony ([phone]) and informed him that pt will be discharged tomorrow 12/23/19 to [facility]. Son agreed with discharge plan and BEV provided him with facility contact information.
[2019-12-22 16:00] VITALS: BP 106/58
[2019-12-22] MEDS: DIVALPROEX 500 MG TABLET.DR PO SCH (17:21)
[2019-12-22 20:07] VITALS: BP 142/70
[2019-12-22] MEDS: ATORVASTATIN 40 MG TABLET PO SCH (20:49)
[2019-12-22] MEDS: INSULIN REGULAR, HUMAN 300 UNITS/3 ML VIAL SQ PRN (21:03)
--- NOTE | 2019-12-22 22:27 | NUR ---
Received patient in bed, patient was calm and cooperative, Alert and oriented x 3, medication compliant, patient focused on going home and patient stated "I will cooperated the best way I can to get out of here." No sign or symptom of respiratory distress, breathing even, unlabored. No indication of pain or discomfort. No behavioral issue, will remain in a psych facility for further evaluation and treatment. Will continue to monitor for safety.
[2019-12-23 07:30] VITALS: BP 140/68
[2019-12-23] MEDS: BLOOD SUGAR DIAGNOSTIC 1 EACH STRIP VI SCH (07:57)
--- NOTE | 2019-12-23 08:28 | NUR ---
DISCHARGE NOTE: Pt will be discharged at 10:00am via AM [facility] ([facility]) [address] [address] [place] [address] P: [phone]. Pts son, Anthony ([phone]) has been notified and agrees with discharge plan. Pts mood is euthymic with congruent affect. Pt denied visual/auditory hallucinations and denied suicidal/homicidal ideation. Pt will be under the care of Psychiatrist: Dr. Dorota Gong [address] [place] [address] [address], [place] [address] [phone] and Exhaust Equipment Operator: Dr Barillas Address: [address] [place] [address] [address], [place] [address] [phone]. The multidisciplinary exit care form was done, printed, signed, and given to the patient.
[2019-12-23 08:38] VITALS: BP 140/68
[2019-12-23] MEDS: DIVALPROEX SPRINKLE 125 MG CAP.SPRINK PO SCH (08:38)
[2019-12-23] MEDS: BENZTROPINE MESYLATE 0.5 MG TABLET PO SCH (08:38)
[2019-12-23] MEDS: risperiDONE 0.5 MG TABLET PO SCH (08:38)
[2019-12-23] MEDS: LISINOPRIL 5 MG TABLET PO SCH (08:38)
[2019-12-23] MEDS: ASPIRIN 81 MG TAB.CHEW PO SCH (08:39)
[2019-12-23] MEDS: GLUCERNA SHAKE VANILLA 237 ML CAN PO SCH (08:44)
[2019-12-23] MEDS: INSULIN REGULAR, HUMAN 300 UNIT/3 ML VIAL SQ PRN (09:00)
[2019-12-23] MEDS ORDERED: MEMANTINE HCL 10 MG TABLET PO SCH (09:00)
--- NOTE | 2019-12-23 10:35 | NUR ---
Called [facility] and gave report to Brody Herndon LVN.
--- NOTE | 2019-12-23 11:20 | NUR ---
Patient is AAO x 3 with episodes of forgetfulness at times. No acute distress or any SOB noted. Vital signs stable. Denies any pain at this time. NO agitation noted. All due morning medication administered as ordered and scheduled and tolerated well. Patient is independent for most care. Patient denies any SI or HI upon assessment. Patient aware of discharge orders.All belonging and valuables returned to patient. Signed discharge paper works and belongings list. Patient seen by Dr. Gong before discharge. All needs attended.
--- NOTE | 2019-12-23 11:35 | NUR ---
Patient assisted and taken via gurney by HEIDY GIRON at 11:30AM.
== END 2019-12-23 12:05 | DRG 885 ==
LOC: ER 21:17 → GPS 22:28
PROVIDERS: ADMIT Psychiatry & Neurology Psychosomatic Medicine; ATTEND Family Medicine
DX: F25.9 Schizoaffective disorder, unspecified (principal); F01.50 Vascular dementia, unspecified severity, without behavioral disturbance, psychotic disturbance, mood disturbance, and anxiety; E11.65 Type 2 diabetes mellitus with hyperglycemia; F29 Unspecified psychosis not due to a substance or known physiological condition; E03.9 Hypothyroidism, unspecified; I10 Essential (primary) hypertension; D64.9 Anemia, unspecified; E78.5 Hyperlipidemia, unspecified; Z98.61 Coronary angioplasty status; I25.10 Atherosclerotic heart disease of native coronary artery without angina pectoris; Z79.4 Long term (current) use of insulin
CPT/HCPCS: 36415; 70450; 80164; 80329; 84443; 85025; 86592; 93005; A4663; G0480; G0480-TC; J1815; J3490